=== PATIENT | male | born 1970 | race African-American/Black ===

== ENCOUNTER 2019-10-08 13:32 | Inpatient (IN) | payer OTHER ==
--- NOTE | 2019-10-08 13:45 | BHS.RME ---
Substance Use & Tx History - Substance Use History Alcohol Substance amount: 3 liters light or dark rum Frequency of use: Daily Substance route: Oral Date of Last Use: 10/08/19 Physical/Psych/Mental Status - Behavior General Behavior: Increased activity (restlessness, agitation) Eye Contact: Normal - Cooperativeness Cooperativeness: Cooperative - Thinking Thought Processes: Tight, Logical, Goal Directed - Physical Health Problems Is patient presently having any pain?: No Does patient presently have any injuries (include location): No Does patient currently have a fever: No Is patient : No CIWA Nausea/Vomitin-Mild Nausea/No Vomiting Muscle Tremors: 1-None Visible, but [place] Anxiety: 3 Agitation: 3 Paroxysmal Sweats: 1-Minimal Palms Moist Orientation: 3-Disoriented Date>2 days Tacttile Disturbances: 0-None Auditory Disturbances: 0-None Visual Disturbances: 0-None Headache: 1-Very Mild CIWA-Ar Total Score: 13
[2019-10-08 15:06] VITALS: BMI 30.4
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
[2019-10-08] MEDS ORDERED: ACETAMINOPHEN 325 MG TABLET (FP) PO PRN ×2 (16:03)
[2019-10-08] MEDS ORDERED: IBUPROFEN 400 MG TABLET (FP) PO PRN (16:03)
[2019-10-08] MEDS ORDERED: MAGNESIUM HYDROX 2400MG/30ML ORAL SUSPENSION 30 ML CUP PO PRN (16:03)
[2019-10-08] MEDS ORDERED: ONDANSETRON *ODT* 4 MG TABLET SL PRN (16:03)
[2019-10-08] MEDS ORDERED: chlordiazePOXIDE HCL 25 MG CAPSULE PO PRN (16:03)
[2019-10-08] MEDS ORDERED: BISMUTH SUBSALICYLATE 524 MG/30 ML UD PO PRN (16:03)
[2019-10-08] MEDS ORDERED: NICOTINE POLACRILEX 2 MG GUM BUC PRN (16:03)
[2019-10-08] MEDS ORDERED: MAGNESIUM CITRATE 300 ML BOTTLE PO PRN (16:03)
[2019-10-08] MEDS ORDERED: MAG HYDROX/AL HYDROX/SIMETH 30 ML UNIT-DOSE CUP PO PRN (16:03)
[2019-10-08] MEDS ORDERED: METHOCARBAMOL 500 MG TABLET PO PRN (16:03)
[2019-10-08] MEDS ORDERED: MENTHOL/PHENOL 1 EACH UD MM PRN (16:03)
[2019-10-08] MEDS ORDERED: ONDANSETRON *ODT* 4 MG TABLET SL ONE (16:06)
--- NOTE | 2019-10-08 17:31 | PN ---
[facility] Progress Note Note: Psychiatry Attending's note : Patient is approached for psychiatric evaluation. Mr Stevenson indicates that he is tired and fatigued. Requests that interview be deferred until tomorrow. " I am to exhausted to talk now. Come back some other time." Patient is observed resting in bed. No evidence of physical distress. Liaison-Psychiatry will follow in the morning.
[2019-10-08] MEDS: NICOTINE 21 MG/24 HOURS TOPICAL PATCH TD SCH (17:48)
[2019-10-08] MEDS: chlordiazePOXIDE HCL 25 MG CAPSULE PO SCH ×2 (17:48→22:05)
[2019-10-08] MEDS: hydrOXYzine PAMOATE 25 MG CAPSULE (FP) PO SCH ×2 (18:00→22:05)
[2019-10-08] MEDS: PRENATAL VITAMINS W/ FOLIC ACID TABLET (FP) PO SCH (18:04)
[2019-10-08] MEDS: MELATONIN 5 MG TABLETS PO SCH (22:04)
[2019-10-08] MEDS: THIAMINE HCL 100 MG TABLET (FP) PO SCH (22:05)
[2019-10-09] MEDS: chlordiazePOXIDE HCL 25 MG CAPSULE PO SCH ×2 (06:15→10:13)
[2019-10-09] MEDS: hydrOXYzine PAMOATE 25 MG CAPSULE (FP) PO SCH ×3 (06:15→15:11)
[2019-10-09] MEDS: PRENATAL VITAMINS W/ FOLIC ACID TABLET (FP) PO SCH (10:13)
[2019-10-09] MEDS: NICOTINE 21 MG/24 HOURS TOPICAL PATCH TD SCH (10:14)
--- NOTE | 2019-10-09 10:23 | PN ---
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 will retrieve the phone number and address in an appropriate time reports general body aches and muscle cramping motrin 400mg po x 1 robaxin 500mg po x 1 loose stool x 1 after breakfast imodium 4 mg po x 1 Objective: 10/09/19 10:50 Vital Signs - 24 hr 10/08/19 10/08/19 10/08/19 15:01 16:26 20:49 Temperature 97.0 F L 98.4 F 97.5 F L Pulse Rate 99 H 115 H 105 H Respiratory 20 18 18 Rate Blood Pressure 129/84 119/73 128/83 O2 Sat by Pulse 98 95 Oximetry (%) 10/09/19 10/09/19 10/09/19 00:44 03:23 06:14 Temperature 98.0 F Pulse Rate 63 Respiratory 18 18 18 Rate Blood Pressure 100/60 O2 Sat by Pulse 99 Oximetry (%) 10/09/19 08:35 Temperature 97.1 F L Pulse Rate 74 Respiratory 18 Rate Blood Pressure 105/63 O2 Sat by Pulse Oximetry (%) 10/09/19 10:51 lab pending Assessment: 10/09/19 10:51 alcohol withdrawal hiv Plan: librium regiment genvoya confirmation pending
[2019-10-09] MEDS ORDERED: METHOCARBAMOL 500 MG TABLET PO ONE (10:41)
[2019-10-09] MEDS ORDERED: IBUPROFEN 400 MG TABLET (FP) PO ONE (10:41)
[2019-10-09] MEDS ORDERED: LOPERAMIDE HCL 2 MG CAPSULE PO ONE (10:42)
[2019-10-09 10:50] LABS: HEMATOCRIT 41.2 % (35.4-49); HEMOGLOBIN 14.1 GM/dL (11.7-16.9); MCH 33.3 pg (25.7-33.7); MCHC 34.3 g/dl (32.0-35.9); MEAN CELL VOLUME 96.9 fl (80-96); MEAN PLT VOLUME 8.4 fl (7.5-11.1); PLATELET COUNT 271 K/MM3 (134-434); RBC 4.25 M/mm3 (4.00-5.60); RDW 14.8 % (11.9-15.9); WHITE BLOOD COUNT 8.8 K/mm3 (4.0-10.0)
[2019-10-09 10:58] LABS: ALBUMIN 4.2 g/dl (3.4-5.0); BILIRUBIN,TOTAL 0.2 mg/dL (0.2-1); BLOOD UREA NITROGEN 5.5 mg/dL (7-18); CALCIUM 9.2 mg/dL (8.5-10.1); TOT PROT 8.2 g/dl (6.4-8.2)
[2019-10-09 11:00] LABS: CREATININE 1.2 mg/dL (0.55-1.3)
[2019-10-09 11:05] LABS: POTASSIUM 2.5 mmol/L (3.5-5.1)
[2019-10-09] MEDS ORDERED: LORazepam 1 MG TABLET PO PRN (11:27)
[2019-10-09] MEDS ORDERED: ALBUTEROL SO4 HFA INHALER IH PRN (11:30)
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
[2019-10-09] MEDS: ELVITEG/COB/EMTRI/TENOF (GENVOYA) TABLET (NF) PO SCH (12:47)
[2019-10-09] MEDS: POTASSIUM CHLORIDE ORAL LIQUID 20 MEQ/15 ML PO SCH ×2 (12:47→15:11)
[2019-10-09] MEDS ORDERED: BUDESONIDE/FORMETEROL FUMARATE 80/4.5 mcg INHALER IH PRN (14:22)
[2019-10-09] MEDS ORDERED: diphenhydrAMINE HCL 50 MG CAPSULE PO PRN (15:27)
[2019-10-09] MEDS: FAMOTIDINE 20 MG TABLET PO SCH ×2 (15:45→22:12)
[2019-10-09] MEDS: LORazepam 2 MG TABLET PO SCH ×2 (17:47→22:11)
[2019-10-09] MEDS: THIAMINE HCL 100 MG TABLET (FP) PO SCH (21:40)
[2019-10-09] MEDS: MELATONIN 5 MG TABLETS PO SCH (21:40)
[2019-10-09] MEDS ORDERED: BUDESONIDE/FORMETEROL FUMARATE 80/4.5 mcg INHALER IH SCH ×2 (22:00)
[2019-10-10] MEDS ORDERED: chlordiazePOXIDE HCL 25 MG CAPSULE PO SCH (05:00)
[2019-10-10] MEDS: LORazepam 2 MG TABLET PO SCH ×2 (06:23→10:09)
[2019-10-10] MEDS: ELVITEG/COB/EMTRI/TENOF (GENVOYA) TABLET (NF) PO SCH (08:50)
[2019-10-10] MEDS ORDERED: amLODIPine BESYLATE 10 MG TABLET (FP) PO SCH (10:00)
[2019-10-10] MEDS: NICOTINE 21 MG/24 HOURS TOPICAL PATCH TD SCH (10:08)
[2019-10-10] MEDS: FAMOTIDINE 20 MG TABLET PO SCH (10:08)
[2019-10-10] MEDS: PRENATAL VITAMINS W/ FOLIC ACID TABLET (FP) PO SCH (10:08)
[2019-10-10] MEDS ORDERED: POTASSIUM CHLORIDE ORAL LIQUID 20 MEQ/15 ML PO ONE (10:34)
--- NOTE | 2019-10-10 10:34 | PN ---
[facility] CIWA - CIWA Score Nausea/Vomitin-Mild Nausea/No Vomiting Muscle Tremors: 1-None Visible, but [place] Anxiety: 2 Agitation: 2 Paroxysmal Sweats: No Perspiration Orientation: 0-Oriented Tacttile Disturbances: 1-Very Mild Itch/Numbness Auditory Disturbances: 0-None Visual Disturbances: 0-None Headache: 0-None Present CIWA-Ar Total Score: 7 B[facility] Progress Note (SOAP) Subjective: 49 years old male admitted on 10/08/19 for alcohol withdrawal sx management treating with ativan detox regiment feeling better today ate breakfast tolerated food well refuses x ray "swelling is gone" denies trouble chewing swallowing denies pain Objective: 10/10/19 10:36 Vital Signs - 24 hr 10/09/19 10/09/19 10/09/19 12:35 16:49 20:58 Temperature 97.1 F L 96.9 F L 97.3 F L Pulse Rate 82 77 77 Respiratory 18 18 18 Rate Blood Pressure 102/66 109/81 103/72 O2 Sat by Pulse 98 100 Oximetry (%) 10/10/19 10/10/19 10/10/19 00:27 03:26 06:33 Temperature 97.4 F L Pulse Rate 56 L Respiratory 18 20 18 Rate Blood Pressure 121/80 O2 Sat by Pulse 98 Oximetry (%) 10/10/19 08:45 Temperature 98 F Pulse Rate 86 Respiratory 18 Rate Blood Pressure 126/88 O2 Sat by Pulse Oximetry (%) Laboratory Tests 10/09/19 10/09/19 10/09/19 07:50 07:50 08:30 WBC 8.8 RBC 4.25 Hgb 14.1 Hct 41.2 MCV 96.9 H MCH 33.3 MCHC 34.3 RDW 14.8 Plt Count 271 MPV 8.4 Sodium 141 Potassium 2.5 L* Chloride 100 Carbon Dioxide 27 Anion Gap 14 BUN 5.5 L Creatinine 1.2 Est GFR (CKD-EPI)AfAm 80.66 Est GFR (CKD-EPI)NonAf 69.59 Random Glucose 157 H Calcium 9.2 Total Bilirubin 0.2 AST 102 H ALT 101 H Alkaline Phosphatase 85 Total Protein 8.2 Albumin 4.2 Syphilis Serology Non-reactive 10/10/19 08:30 WBC RBC Hgb Hct MCV MCH MCHC RDW Plt Count MPV Sodium Potassium 3.4 L Chloride Carbon Dioxide Anion Gap BUN Creatinine Est GFR (CKD-EPI)AfAm Est GFR (CKD-EPI)NonAf Random Glucose Calcium Total Bilirubin AST ALT Alkaline Phosphatase Total Protein Albumin Syphilis Serology low K+ one dose K+ 40mEq repeat K+ Assessment: 10/10/19 10:38 alcohol withdrawal Plan: ativan regiment
[2019-10-10 13:20] VITALS: BP 127/78; PULSE 73; TEMP 97.1
--- NOTE | 2019-10-10 14:09 | EKG ---
Test Reason : Blood Pressure : / mmHG Vent. Rate : 087 BPM Atrial Rate : 087 BPM P-R Int : 158 ms QRS Dur : 088 ms QT Int : 364 ms P-R-T Axes : 057 -01 018 degrees QTc Int : 438 ms NORMAL SINUS RHYTHM NORMAL ECG NO PREVIOUS ECGS AVAILABLE Confirmed by KEEGAN BOWMAN MD ([id number]) on 10/10/2019 2:09:00 PM Referred By: Confirmed By:KEEGAN BOWMAN MD
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
[2019-10-11] MEDS ORDERED: chlordiazePOXIDE HCL 10 MG CAPSULE PO PRN
[2019-10-11] MEDS ORDERED: chlordiazePOXIDE HCL 10 MG CAPSULE PO SCH (05:00)
[2019-10-11] MEDS ORDERED: LORazepam 1 MG TABLET PO SCH (05:00)
[2019-10-12] MEDS ORDERED: LORazepam 0.5 MG TABLET PO PRN
[2019-10-12] MEDS ORDERED: LORazepam 0.5 MG TABLET PO SCH (05:00)
[2019-10-12] MEDS ORDERED: chlordiazePOXIDE HCL 10 MG CAPSULE PO SCH (05:00)
[2019-10-13] MEDS ORDERED: chlordiazePOXIDE HCL 10 MG CAPSULE PO ONE (05:00)
[2019-10-13] MEDS ORDERED: LORazepam 0.5 MG TABLET PO ONE (05:00)
== END 2019-10-10 14:10 | disposition left against medical advice (07) | DRG 770 ==
LOC: YASAS 13:32 → Y3N 14:56
PROVIDERS: ADMIT Allergy & Immunology; ATTEND Allergy & Immunology
PROC: HZ2ZZZZ Detoxification Services for Substance Abuse Treatment (ICD-10-PCS; principal; 2019-10-08)
DX: F10.230 Alcohol dependence with withdrawal, uncomplicated (principal); F14.10 Cocaine abuse, uncomplicated; F17.210 Nicotine dependence, cigarettes, uncomplicated; F41.9 Anxiety disorder, unspecified; Z21 Asymptomatic human immunodeficiency virus [HIV] infection status; J45.20 Mild intermittent asthma, uncomplicated; K21.9 Gastro-esophageal reflux disease without esophagitis; J30.2 Other seasonal allergic rhinitis; M79.632 Pain in left forearm; R51 Headache; R07.81 Pleurodynia; Y04.2XXA Assault by strike against or bumped into by another person, initial encounter; Y93.89 Activity, other specified; Y92.89 Other specified places as the place of occurrence of the external cause; Y99.8 Other external cause status; Y07.6 Multiple perpetrators of maltreatment and neglect; Z56.0 Unemployment, unspecified; Z88.0 Allergy status to penicillin; Z91.018 Allergy to other foods
CPT/HCPCS: 36415; 80053; 84132; 85027; 86780; 93005; 93010; Q0162; U0003